=== PATIENT | male | born 1975 | race Hispanic/Latino ===

== ENCOUNTER 2016-12-08 03:01 | Emergency (ER) | payer MEDICARE ==
[2016-12-08 03:59] LABS: Urine Drugs of Abuse Note Disclamer
[2016-12-08 04:04] VITALS: BP 120/80
[2016-12-08 04:04] LABS: Basophils % (Auto) 0.9 % (0.0-1.8); Eosinophils % (Auto) 1.1 % (0.0-4.3); Hematocrit 40.4 % (35.5-45.6); Hemoglobin 13.4 gm/dl (11.8-15.2); Mean Corpuscular HGB Conc 33 % (32-34); Mean Corpuscular Hemoglobin 29 pg (28-32); Mean Corpuscular Volume 87 fl (84-94); Platelet Count 247 K/mm3 (140-440); Red Blood Count 4.65 M/mm3 (3.65-5.03); Red Cell Distribution Width 14.3 % (13.2-15.2); White Blood Count 11.4 K/mm3 (4.5-11.0)
[2016-12-08 04:18] LABS: Bilirubin,Urine NEG (Negative); Blood,Urine NEG (Negative); Ketones,Urine TR mg/dL (Negative); Leukocyte Esterase,Urine NEG (Negative); Mucus,Urine 3+ /HPF; Nitrite,Urine NEG (Negative); Urobilinogen,Urine < 2.0 mg/dL (<2.0); WBC,Urine < 1.0 /HPF (0.0-6.0)
[2016-12-08 04:33] LABS: Anion Gap 18 mmol/L; Blood Urea Nitrogen 12 mg/dL (9-20); Calcium 9.1 mg/dL (8.4-10.2); Carbon Dioxide 23 mmol/L (22-30); Chloride 102.7 mmol/L (98-107); Glucose 103 mg/dL (75-100); Potassium 3.6 mmol/L (3.6-5.0); Sodium 140 mmol/L (137-145)
--- NOTE | 2016-12-08 04:58 | Emergency Department Report ---
ED Psych HPI - General Chief Complaint: Psych Stated Complaint: ELEVATED HEART RATE Time Seen by Provider: 12/08/16 04:52 Source: patient Mode of arrival: Ambulatory Limitations: No Limitations - History of Present Illness Initial Comments: 41-year-old male with a past medical history of anxiety and depression presents to the hospital complaining of homicidal ideation and increased heart rate. Patient with anchor prior to arrival and was sent for medical clearance. Patient denies wanting to kill anyone in particular. Patient denies auditory or visual hallucinations. Denies suicidal ideation. Chronic neck and lower back pain. He ran out of his oxycodone one week ago. He also takes Xanax twice a day with last dose yesterday and Remeron. - Related Data Allergies Allergy/AdvReac Type Severity Reaction Status Date / Time No Known Allergies Allergy Verified 12/08/16 03:13 ED Review of Systems ROS: Stated complaint: ELEVATED HEART RATE Other details as noted in HPI Comment: All other systems reviewed and negative Other: Constitutional: No fevers chills Eyes: No eye pain visual changes ENT: No ear pain or throat pain Neck: Denies pain Respiratory: Denies cough wheezing shortness of breath Cardiovascular: Denies chest pain, palpitations, syncope GI: Denies abdominal pain, nausea, vomiting, diarrhea : Denies dysuria Musculoskeletal: As per HPI Skin: Denies rash, lesions, erythema Neurologic: Denies headache, numbness, weakness Psychiatric: As per HPI ED Past Medical Hx - Past Medical History Previous Medical History?: Yes Hx Psychiatric Treatment: Yes (ANXIETY/DEPRESSION) - Surgical History Past Surgical History?: No - Social History Smoking Status: Never Smoker Substance Use Type: None ED Physical Exam - General Limitations: No Limitations - Other Other exam information: General: No limitations, patient is alert in no acute distress Head exam: Atraumatic, normocephalic Eyes exam: Normal appearance, pupils equal reactive to light, extraocular movements intact ENT: Moist mucous membrane, normal oropharynx Neck exam: Normal inspection, full range of motion, no meningismus nontender Respiratory exam: Clear to auscultation bilateral, no wheezes, rales, crackles Cardiovascular: Normal rate and rhythm, normal heart sounds Abdomen: Soft, nondistended, and nontender, with normal bowel sounds, no rebound, or guarding Extremity: Full range of motion normal inspection no deformity Back: Normal Inspection, full range of motion, no tenderness Neurologic: Alert, oriented x3, cranial nerves intact, no motor or sensory deficit Psychiatric: normal affect, normal mood Skin: Warm, dry, intact ED Course Vital Signs 12/08/16 12/08/16 03:13 03:49 Temperature 98.2 F 98 F Pulse Rate 87 82 Respiratory 22 18 Rate Blood Pressure 123/82 Blood Pressure 120/80 [Left] O2 Sat by Pulse 98 Oximetry - Reevaluation(s) Reevaluation #1: 12/08/16 04:58 I will continue patient's Xanax to prevent benzodiazepine withdraw and will continue his Remeron ED Medical Decision Making - Lab Data Result diagrams: 12/08/16 03:44 12/08/16 03:44 Lab Results 12/08/16 12/08/16 12/08/16 Range/Units 03:44 03:44 03:44 WBC 11.4 H (4.5-11.0) K/mm3 RBC 4.65 (3.65-5.03) M/mm3 Hgb 13.4 (11.8-15.2) gm/dl Hct 40.4 (35.5-45.6) % MCV 87 (84-94) fl MCH 29 (28-32) pg MCHC 33 (32-34) % RDW 14.3 (13.2-15.2) % Plt Count 247 (140-440) K/mm3 Lymph % (Auto) 39.3 H (13.4-35.0) % [place] % (Auto) 6.6 (0.0-7.3) % Eos % (Auto) 1.1 (0.0-4.3) % Baso % (Auto) 0.9 (0.0-1.8) % Lymph # 4.5 (1.2-5.4) K/mm3 [place] # 0.7 (0.0-0.8) K/mm3 Eos # 0.1 (0.0-0.4) K/mm3 Baso # 0.1 (0.0-0.1) K/mm3 Seg Neutrophils % 52.1 (40.0-70.0) % Seg Neutrophils # 5.9 (1.8-7.7) K/mm3 Sodium 140 (137-145) mmol/L Potassium 3.6 (3.6-5.0) mmol/L Chloride 102.7 (98-107) mmol/L Carbon Dioxide 23 (22-30) mmol/L Anion Gap 18 mmol/L BUN 12 (9-20) mg/dL Creatinine 0.8 (0.8-1.5) mg/dL Estimated GFR > 60 ml/min BUN/Creatinine Ratio 15.00 % Glucose 103 H (75-100) mg/dL Calcium 9.1 (8.4-10.2) mg/dL Total Creatine Kinase (55-170) units/L Urine Color (Yellow) Urine Turbidity (Clear) Urine pH (5.0-7.0) Ur Specific [place] (1.003-1.030) Urine Protein (Negative) mg/dL Urine Glucose (UA) (Negative) mg/dL Urine Ketones (Negative) mg/dL Urine Blood (Negative) Urine Nitrite (Negative) Urine Bilirubin (Negative) Urine Urobilinogen (<2.0) mg/dL Ur Leukocyte Esterase (Negative) Urine WBC (Auto) (0.0-6.0) /HPF Urine RBC (Auto) (0.0-6.0) /HPF Hyaline Casts /LPF Urine Mucus /HPF Urine Opiates Screen Urine Methadone Screen Ur Barbiturates Screen Ur Phencyclidine Scrn Ur Amphetamines Screen U Benzodiazepines Scrn Urine Cocaine Screen U Marijuana (THC) Screen Drugs of Abuse Note Plasma/Serum Alcohol < 0.01 (0-0.07) gm% 12/08/16 12/08/16 12/08/16 Range/Units 03:44 03:45 03:45 WBC (4.5-11.0) K/mm3 RBC (3.65-5.03) M/mm3 Hgb (11.8-15.2) gm/dl Hct (35.5-45.6) % MCV (84-94) fl MCH (28-32) pg MCHC (32-34) % RDW (13.2-15.2) % Plt Count (140-440) K/mm3 Lymph % (Auto) (13.4-35.0) % [place] % (Auto) (0.0-7.3) % Eos % (Auto) (0.0-4.3) % Baso % (Auto) (0.0-1.8) % Lymph # (1.2-5.4) K/mm3 [place] # (0.0-0.8) K/mm3 Eos # (0.0-0.4) K/mm3 Baso # (0.0-0.1) K/mm3 Seg Neutrophils % (40.0-70.0) % Seg Neutrophils # (1.8-7.7) K/mm3 Sodium (137-145) mmol/L Potassium (3.6-5.0) mmol/L Chloride (98-107) mmol/L Carbon Dioxide (22-30) mmol/L Anion Gap mmol/L BUN (9-20) mg/dL Creatinine (0.8-1.5) mg/dL Estimated GFR ml/min BUN/Creatinine Ratio % Glucose (75-100) mg/dL Calcium (8.4-10.2) mg/dL Total Creatine Kinase 446 H (55-170) units/L Urine Color Yellow (Yellow) Urine Turbidity Clear (Clear) Urine pH 5.0 (5.0-7.0) Ur Specific [place] 1.029 (1.003-1.030) Urine Protein 30 mg/dl (Negative) mg/dL Urine Glucose (UA) Neg (Negative) mg/dL Urine Ketones Tr (Negative) mg/dL Urine Blood Neg (Negative) Urine Nitrite Neg (Negative) Urine Bilirubin Neg (Negative) Urine Urobilinogen < 2.0 (<2.0) mg/dL Ur Leukocyte Esterase Neg (Negative) Urine WBC (Auto) < 1.0 (0.0-6.0) /HPF Urine RBC (Auto) 2.0 (0.0-6.0) /HPF Hyaline Casts 6 /LPF Urine Mucus 3+ /HPF Urine Opiates Screen Presumptive negative Urine Methadone Screen Presumptive negative Ur Barbiturates Screen Presumptive negative Ur Phencyclidine Scrn Presumptive negative Ur Amphetamines Screen Presumptive positive U Benzodiazepines Scrn Presumptive positive Urine Cocaine Screen Presumptive negative U Marijuana (THC) Screen Presumptive positive Drugs of Abuse Note Disclamer Plasma/Serum Alcohol (0-0.07) gm% - EKG Data -: EKG Interpreted by Me (sinus rhythm rate [address] elevation MT with T inversions) - Medical Decision Making Patient's UDS positive for amphetamine, benzos, and marijuana. Other lab work unremarkable. Patient medically clear for transfer. 1013 and transfer form signed. - Differential Diagnosis homicidal ideation, depression, anxiety, substance abuse Critical Care Time: No Critical care attestation.: If time is entered above; I have spent that time in minutes in the direct care of this critically ill patient, excluding procedure time. ED Disposition Clinical Impression: Homicidal ideation, Anxiety, Depression, Polysubstance abuse, Medical clearance for psychiatric admission Disposition: DC/TX-65 PSY HOSP/PSY UNIT Is pt being admited?: No Does the pt Need Aspirin: No Condition: Stable Time of Disposition: 05:38 (awaiting acceptance)
[2016-12-08] MEDS ORDERED: ATIVAN PO SCH (10:00)
--- NOTE | 2016-12-08 15:36 | Consultation ---
History of Present Illness - Reason for Consult Consult date: 12/08/16 Reason for consult: Mental Health Evaluation Requesting physician: SARIKA LOPEZ - Chief Complaint Chief complaint: "I'm go through something" - History of Present Psychiatric Illness 41-year-old male with a past medical history of anxiety and depression presents to the hospital complaining of homicidal ideation and increased heart rate. Today patient is calm and cooperative during the assessment. He stated being "confused" yesterday on admission and don't remember stating that he was homicidal. He did state that his mom recently and felt depressed (sad and withdrawn). He stated having suicidal thoughts weeks ago. He was hyper verbal during our conversation. He denies every being manic or dx'd with Bipolar DO. He denies SI/HI's and AVH's. He rate his depression 5/10, with 10 being the worse. He admit to recreational drug use (amphetamines/marijuana) to self medicate (depression), but denies excessive alcohol consumption (etoh). Patient stated that he take Xanax twice a day. Medications and Allergies Allergies Allergy/AdvReac Type Severity Reaction Status Date / Time No Known Allergies Allergy Verified 12/08/16 03:13 Past psychiatric history - Past Medical History Past Medical History: other (Chronic back pain) Past Surgical History: No surgical history - past Psychiatric treatment and history Psych: Anxiety, Depression psychiatric treatment history: Multiple inpatient psy settings. Denies a fam psy hx. - Social History Social history: other (10th grade education) Mental Status Exam - Vital signs Last Vital Signs Temp 98 F 12/08/16 03:49 Pulse 82 12/08/16 03:49 Resp 18 12/08/16 03:49 BP 120/80 12/08/16 03:49 Pulse Ox 98 12/08/16 03:49 - Exam Narrative exam: ROS: (+) depression MSE: Appearance: cooperative, anxious Behavior: regular eye contact Speech: regular tone, hyper verbal Mood: "down" Affect: labile Thought Process: circumstantial Thought Content: denies SI/HI's and AVH's Motor Activity: sitting up Cognition: A/Ox 3 Insight: variable Judgment: variable Results Result Diagrams: 12/08/16 03:44 12/08/16 03:44 Abnormal lab results 12/08/16 12/08/16 12/08/16 Range/Units 03:44 03:44 03:44 WBC 11.4 H (4.5-11.0) K/mm3 Lymph % (Auto) 39.3 H (13.4-35.0) % Glucose 103 H (75-100) mg/dL Total Creatine Kinase 446 H (55-170) units/L All other labs normal. Assessment and Plan Assessment and plan: Impression: Historical Dx: Depression/Anxiety. MDD severe type. Substance Use DO (amphetamines/marijuana). Today patient is calm and cooperative during the assessment. Patient positive for amphetamines, benzos, and marijuana. DDx: R/O Bipolar, R/O Substance Induced Mood DO Recommendation/Plan: Continue 1013 with placement to [facility]. Discussed generalized coping skill with patient.
[2016-12-08] MEDS ORDERED: REMERON PO SCH (22:00)
== END 2016-12-08 08:22 ==
LOC: EEVIPCON 03:01 → ED 03:01
DX: R45.850 Homicidal ideations (principal); F41.9 Anxiety disorder, unspecified; F32.9 Major depressive disorder, single episode, unspecified; F19.10 Other psychoactive substance abuse, uncomplicated
CPT/HCPCS: 36415; 80048; 80307; 81001; 82550; 85025; 93005; 93010; 99285; G0480; 80320

== ENCOUNTER 2019-06-25 12:59 | Emergency (ER) | payer MEDICARE | END 2019-06-25 16:10 | disposition left against medical advice (07) | LOC: ED 12:59 | DX: R51 Headache (principal); Z53.21 Procedure and treatment not carried out due to patient leaving prior to being seen by health care provider ==

== ENCOUNTER 2020-04-02 12:49 | Outpatient (CLI) | payer MEDICARE | END 2020-04-02 12:50 | disposition home or self-care (01) | LOC: SLR 12:49 | PROVIDERS: ATTEND Otolaryngology | DX: G47.33 Obstructive sleep apnea (adult) (pediatric) (principal); R40.0 Somnolence; E66.9 Obesity, unspecified | CPT/HCPCS: 95811 ==

== ENCOUNTER 2020-05-19 06:57 | Day surgery (SDC) | payer MEDICARE ==
[~2020-05-19 06:57] MED LIST: SODIUM CHLORIDE 0.9% 1000 ML 1,000 ML IV SCH
[2020-05-19] MEDS ORDERED: SODIUM CHLORIDE 0.9% 1000 ML 1,000 ML IV SCH (07:00)
--- NOTE | 2020-05-19 07:47 | Anesthesia Day of Surgery ---
Anesthesia Day of Surgery - Day of Surgery Patient Examined: Yes Patient H&P Reviewed: Yes Patient is NPO: Yes
--- NOTE | 2020-05-19 07:47 | Anesthesia Consultation ---
Anesthesia Consult and Med Hx Date of service: 05/19/20 - Airway Anesthetic Teeth Evaluation: Good ROM Head & Neck: Adequate Mental/Hyoid Distance: Adequate Mallampati Class: Class I Intubation Access Assessment: Good - Pulmonary Exam CTA: Yes - Cardiac Exam Cardiac Exam: RRR - Pre-Operative Health Status ASA Pre-Surgery Classification: ASA3 Proposed Anesthetic Plan: MAC - Pulmonary Hx Smoking: No Hx Respiratory Symptoms: No Hx Sleep Apnea: Yes (compliant with CPAP) - Cardiovascular System Hx Hypertension: No - Central Nervous System CVA: No - Gastrointestinal Hx Gastroesophageal Reflux Disease: Yes - Endocrine Hx Renal Disease: No Hx Liver Disease: No Hx Insulin Dependent Diabetes: No Hx Non-Insulin Dependent Diabetes: No Hx Thyroid Disease: No - Other Systems Hx Obesity: Yes - Additional Comments Anesthesia Medical History Comments: No hx anesthetic complications.
--- NOTE | 2020-05-19 09:25 | Discharge Summary ---
Providers - Providers Date of Admission: 05/19/20 Date of discharge: 05/19/20 Attending physician: JOANNA RAMIREZ MD [facility] Reason for admission: EGD as part of pre-op planning for bariatric surgery Condition: Good Procedures: EGD with bx Hospital course: Pt presented for a pre-op EGD as part of planning for up coming bariatric surgery. Procedure was uneventful and pt recovered well and was discharged to home. Disposition: DC- TO HOME OR SELFCARE Core Measure Documentation - Palliative Care Palliative Care/ Comfort Measures: Not Applicable - Core Measures Any of the following diagnoses?: none Exam - Physical Exam Narrative exam: unchanged from pre-op - Constitutional Vitals: Temp Pulse Resp BP Pulse Ox 98 F 88 13 127/88 96 05/19/20 07:55 05/19/20 07:55 05/19/20 07:55 05/19/20 07:55 05/19/20 07:55 Plan Activity: advance as tolerated Diet: low carbohydrate Follow up with: SYED JULIEN MD [Primary Care Provider] - 7 Days
[2020-05-19] MEDS ORDERED: LIDOCAINE MPF (2%) 20 MG/1 ML VIAL 5 ML ONE (09:28)
[2020-05-19] MEDS ORDERED: propofoL 200 MG/20 ML VIAL IV ONE ×2 (09:28→09:41)
--- NOTE | 2020-05-19 09:31 | Operative Report ---
Operative Report Operative Report: DATE: 05/19/20 SURGERY: Upper endoscopy. SURGEON: Isabell Martínez M.D. PROCEDURE: EGD with biopsy PRE OP DX: morbid obesity, GERD POST OP DX: morbid obesity, GERD TYPE OF ANESTHESIA: MAC. ESTIMATED BLOOD LOSS: None. COMPLICATIONS: None. SPECIMENS REMOVED: antral biopsy FINDINGS: 1. Small hiatal hernia. 2. moderate gastritis. INDICATIONS:INDICATION FOR PROCEDURE: Patient is a 45-year-old male with a long history of morbid obesity. He is planned to have a weight loss procedure and is here for preoperative planning EGD. PROCEDURE DETAILS: After consent was reviewed, patient was taken back to the operating room where patient was placed in the left lateral decubitus position and a bite block was placed in the mouth. After a time-out was called, MAC anesthesia was initiated. I then passed the endoscope into his oropharynx, into his esophagus, visualized the entire esophagus, which was all within normal limits. Z-line was noted to about 40cm from incisors. I then visualized the stomach and the first portion of the duodenum and there were no abnormalities I could clearly visualize with the exception of moderate gastritis. A cold forceps biopsy of the antrum was taken and will be sent to pathology to evaluate for H.pylori. I then retroflexed the scope in the stomach and visualized the hiatus and I could see a small hiatal hernia. I then desufflated the stomach and removed the endoscope. Patient tolerated procedure well and was transferred to recovery room in good and stable condition.
[2020-05-19 10:12] VITALS: BP 99/70
--- NOTE | 2020-05-19 10:30 | Post Anesthesia Evaluation ---
- Post Anesthesia Evaluation Patient Participated: Yes Airway Patent: Yes Stable Respiratory Function: Yes Nausea/Vomiting: No Temp > 96.8F: Yes Pain Manageable: Yes Adequeate Hydration: Yes Anesthesia Complications: No
== END 2020-05-19 06:58 | disposition home or self-care (01) ==
LOC: GIO 06:57
PROVIDERS: ATTEND Surgery
DX: K21.9 Gastro-esophageal reflux disease without esophagitis (principal); E66.01 Morbid (severe) obesity due to excess calories; K44.9 Diaphragmatic hernia without obstruction or gangrene; K29.70 Gastritis, unspecified, without bleeding; G47.30 Sleep apnea, unspecified; M19.90 Unspecified osteoarthritis, unspecified site; F32.9 Major depressive disorder, single episode, unspecified; F41.9 Anxiety disorder, unspecified; Z68.38 Body mass index [BMI] 38.0-38.9, adult; Z79.899 Other long term (current) drug therapy; Z88.8 Allergy status to other drugs, medicaments and biological substances; Z90.49 Acquired absence of other specified parts of digestive tract
CPT/HCPCS: 43239; 88305; 88342; J2704; J7030

== ENCOUNTER 2020-06-25 14:55 | Outpatient (CLI) | payer MEDICARE ==
[2020-06-25 15:45] LABS: Basophils % (Auto) 0.8 % (0.0-1.8); Eosinophils # (Auto) 0.1 K/mm3 (0.0-0.4); Eosinophils % (Auto) 2.5 % (0.0-4.3); Hematocrit 39.6 % (35.5-45.6); Hemoglobin 13.4 gm/dl (11.8-15.2); Lymphocytes # (Auto) 2.3 K/mm3 (1.2-5.4); Lymphocytes % (Auto) 42.4 % (13.4-35.0); Mean Corpuscular HGB Conc 34 % (32-34); Mean Corpuscular Volume 87 fl (84-94); Monocytes # (Auto) 0.3 K/mm3 (0.0-0.8); Monocytes % (Auto) 5.2 % (0.0-7.3); Platelet Count 198 K/mm3 (140-440); Red Blood Count 4.55 M/mm3 (3.65-5.03); Red Cell Distribution Width 14.5 % (13.2-15.2)
[2020-06-25 17:20] LABS: Alanine Aminotransferase 30 units/L (7-56); Blood Urea Nitrogen 14 mg/dL (9-20); Calcium 9.2 mg/dL (8.4-10.2); Chol/HDL Ratio 4.42 %; HDL Cholesterol 42 mg/dL (40-59); Hemolysis Index 3; Iron 116 ug/dL (49-181); LDL Cholesterol,Direct 140 mg/dL (50-130); Total Iron Binding Capacity 358 mcg/dL (250-450)
[2020-06-25 17:22] LABS: BUN/Creatinine Ratio 20
== END 2020-06-25 14:56 | disposition home or self-care (01) ==
LOC: LAB 14:55
PROVIDERS: ATTEND Surgery
DX: E66.01 Morbid (severe) obesity due to excess calories (principal); K30 Functional dyspepsia; E11.9 Type 2 diabetes mellitus without complications
CPT/HCPCS: 36415; 80053; 80061; 82306; 82607; 82728; 83036; 83550; 84443; 85025; 85730

== ENCOUNTER 2020-09-02 13:58 | Emergency (ER) | payer MEDICARE ==
[2020-09-02 14:08] VITALS: BP 119/67
--- NOTE | 2020-09-02 14:37 | Event Note ---
ED Screening Note Date of service: 09/02/20 Time: 14:33 ED Screening Note: 45-year-old male patient with history of obstructive sleep apnea presents to the emergency department with complaints of chest pain and shortness of breath for approximately 10 days. This morning, patient experienced an episode of chest pain and shortness of breath while he was standing at work. He states that the shortness of breath has been the predominant symptom up until today. His oxygen requirements have increased over the last week and a half. He states that his oxygen has dropped to the high 80s while using his CPAP machine. He has noticed increased orthopnea since his symptoms began. He has required up to 3 pillows at nighttime, which is unusual for him. He does not smoke. He has no prior history of congestive heart failure or pulmonary hypertension. He does report undergoing surgery approximately 2 weeks ago. Breast tissue was surgically excised under general anesthesia. He is not anticoagulated. Denies fever, chills, wheezing, hemoptysis, palpitations, syncope, nausea, vomiting, diap horesis lower extremity pain/swelling. Denies other complaints at this time. General: Awake, appropriately interactive, no acute distress. Neck: Supple. Full range of motion intact. Cardiovascular: Regular rate and rhythm. Normal peripheral perfusion. Pulmonary: Clear to auscultation. No respiratory distress. Patient is speaking normally without use of accessory muscles. Skin: No apparent rashes or lesions. Neurological: No facial asymmetry. Speech is clear. Follows commands. Patient is alert and oriented. Musculoskeletal: Moves all four extremities spontaneously with normal range of motion. Psych: Cooperative. Appropriate mood and affect. I have greeted and performed a focused rapid initial assessment of this patient. A comprehensive ED assessment and evaluation of the patient, analysis of all test results, and completion of the medical decision-making process will be conducted by additional ED providers. This initial assessment/diagnostic orders/clinical plan/treatment(s) is/are subject to change based on patients health status, clinical progression and re-assessment. Further treatment and workup at subsequent clinical provider's discretion. Patient/guardian urged not to elope from the ED as their condition may be serious if not clinically assessed and managed. Cardiac work-up initiated; decision to pursue further PE evaluation deferred to additional ED providers.
--- NOTE | 2020-09-02 15:07 | XRay Report ---
CHEST 2 VIEWS INDICATION / CLINICAL INFORMATION: chest pain. COMPARISON: None available. FINDINGS: SUPPORT DEVICES: None. HEART / MEDIASTINUM: No significant abnormality. LUNGS / PLEURA: Small calcified granuloma in the right lung base No pneumothorax. ADDITIONAL FINDINGS: No significant additional findings. IMPRESSION: Small calcified granuloma in the right lung base. No acute disease or evidence of a pneumothorax Signer Name: Chilango Isaacs MD FACVeronica Signed: 09/02/2020 3:02 PM Workstation Name: [id number]
[2020-09-02 15:45] LABS: Basophils % (Auto) 0.3 % (0.0-1.8); Eosinophils # (Auto) 0.1 K/mm3 (0.0-0.4); Hematocrit 37.5 % (35.5-45.6); Hemoglobin 12.5 gm/dl (11.8-15.2); Lymphocytes # (Auto) 2.1 K/mm3 (1.2-5.4); Lymphocytes % (Auto) 30.3 % (13.4-35.0); Mean Corpuscular HGB Conc 33 % (32-34); Mean Corpuscular Volume 88 fl (84-94); Monocytes # (Auto) 0.4 K/mm3 (0.0-0.8); Platelet Count 201 K/mm3 (140-440); Red Blood Count 4.26 M/mm3 (3.65-5.03)
[2020-09-02 15:55] LABS: INR 0.92 (0.87-1.13); Partial Thromboplastin Time 26.5 Sec. (24.2-36.6)
[2020-09-02 16:10] LABS: Alanine Aminotransferase 42 units/L (7-56); Blood Urea Nitrogen 13 mg/dL (9-20); Calcium 8.8 mg/dL (8.4-10.2); Hemolysis Index 6
[2020-09-02 16:15] LABS: BUN/Creatinine Ratio 19
--- NOTE | 2020-09-03 17:50 | Electrocardiograph Report ---
[facility] Test Date: 2020-09-02 Test Time: 14:06:07 Pat Name: SINDHU GOODRICH Department: Room: Gender: M Batch Unloader: JAN : 1975 Requested By: JULIO CÉSAR VANN Order Number: [id number] Reading MD: Nilesh Mortensen Measurements Intervals [place] Rate: 71 P: 33 MO: 168 QRS: -9 QRSD: 110 T: 13 QT: 405 QTc: 441 Interpretive Statements Sinus rhythm No previous ECG available for comparison Electronically Signed On 09-03-2020 17:50:14 EDT by Nilesh Mortensen
== END 2020-09-02 19:35 | disposition left against medical advice (07) ==
LOC: ED 13:58
DX: R07.89 Other chest pain (principal); R06.02 Shortness of breath; Z53.21 Procedure and treatment not carried out due to patient leaving prior to being seen by health care provider
CPT/HCPCS: 36415; 71046; 80053; 83735; 83880; 84484; 85025; 85610; 85730; 93005

== ENCOUNTER 2020-09-08 22:34 | Emergency (ER) | payer MEDICARE | END 2020-09-09 08:20 | disposition left against medical advice (07) | LOC: ED 22:34 | DX: Z53.21 Procedure and treatment not carried out due to patient leaving prior to being seen by health care provider (principal) ==